=== PATIENT | male | born 1960 | race Two or more races ===

== ENCOUNTER 2020-10-20 22:06 | Emergency (ER) | payer SELFPAY ==
[~2020-10-20] VITALS: Ht 172.7 cm; Wt 90.7 kg
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
[2020-10-20 22:25] VITALS: BP 159/109
[2020-10-20] MEDS ORDERED: dexAMETHasone 10mg/ml Inj IV ONE (22:30)
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
[2020-10-20 22:52] LABS: BASOPHILS % (AUTO) 1.9 % (0.0-2.0); EOSINOPHILS % (AUTO) 11.7 % (0.0-3.0); HEMATOCRIT 37.4 % (42.0-52.0); HEMOGLOBIN 13.2 G/DL (14.2-18.0); LYMPHOCYTES % (AUTO) 36.5 % (20.0-45.0); MEAN CORPUSCULAR VOLUME 90 FL (80-99); MONOCYTES % (AUTO) 5.7 % (1.0-10.0); NEUTROPHILS % (AUTO) 44.3 % (45.0-75.0); PLATELET COUNT 192 K/UL (150-450); RED BLOOD COUNT 4.14 M/UL (4.70-6.10); RED CELL DISTRIBUTION WIDTH 14.6 % (11.6-14.8); WHITE BLOOD COUNT 7.8 K/UL (4.8-10.8)
[2020-10-20 22:54] LABS: APPEARANCE,URINE CLEAR; BILIRUBIN, URINE NEGATIVE (NEGATIVE); COLOR,URINE PALE YELLOW; GLUCOSE, URINE (UA) NEGATIVE (NEGATIVE); KETONES,URINE NEGATIVE (NEGATIVE); LEUKOCYTE ESTERASE ,URINE NEGATIVE (NEGATIVE); NITRITE,URINE NEGATIVE (NEGATIVE); PH,URINE 6 (4.5-8.0); PROTEIN,URINE NEGATIVE (NEGATIVE); UROBILINOGEN,URINE NORMAL MG/DL (0.0-1.0)
[2020-10-20 23:01] LABS: ANION GAP 8 mmol/L (5-15); BLOOD UREA NITROGEN 8 mg/dL (7-18); CALCIUM 8.5 MG/DL (8.5-10.1); CARBON DIOXIDE 28 MMOL/L (21-32); CHLORIDE 101 MMOL/L (98-107); POTASSIUM 3.4 MMOL/L (3.5-5.1); SODIUM 137 MMOL/L (136-145)
--- NOTE | 2020-10-20 23:10 | Diagnostic Imaging Report ---
CT head without contrast History: Altered mental status Technique: Axial noncontrast head CT with coronal, sagittal reformatted images. Technique more: CTDI is 53.4 mGy and DLP is 1045.5 mGy-cm. Technique more: One or more of the following dose reduction techniques were used: automated exposure control, adjustment of the mA and/or kV according to patient size, use of iterative reconstruction technique. Comparison: None Findings: Left lateral craniectomy with mesh replacement changes, underlying left temporal frontal encephalomalacia. Peters-white matter differentiation is otherwise seen to be normal. No acute intracranial hemorrhage mass-effect or edema. 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 Impression: 1. Left Hemisphere postsurgical changes and encephalomalacia. 2. No acute intracranial finding.
[2020-10-20 23:16] LABS: ALANINE AMINOTRANSFERASE 45 U/L (12-78); ALBUMIN 3.3 G/DL (3.4-5.0); ALBUMIN/GLOBULIN RATIO 0.9 (1.0-2.7); ALKALINE PHOSPHATASE 61 U/L (46-116); ASPARTATE AMINO TRANSFERASE 44 U/L (15-37); BILIRUBIN,TOTAL 0.5 MG/DL (0.2-1.0); CKMB 5.1 NG/ML (0.0-3.6); CREATINE KINASE 497 U/L (26-308)
--- NOTE | 2020-10-21 00:30 | NUR ---
ED Nurse Note: Patient got out of bed to use restroom. CAROLIND spoke with patient. No acute distress at this time.
[2020-10-21] MEDS ORDERED: cefTRIAXone 1 GM in NS 55 ML IVPB ONE (02:15)
[2020-10-21 02:26] VITALS: BP 146/97
--- NOTE | 2020-10-21 02:26 | NUR ---
ED Nurse Note: Patient is not compliant with keeping nasal cannula in place. He removed oxygen device himself prior to reassessment at this time. Patient is currently breathing normal and unlabored with 98% oxygen sat on room air. No signs of respiratory distress. He is in bed with eyes closed.
[2020-10-21 04:15] VITALS: BP 143/99
--- NOTE | 2020-10-21 04:15 | NUR ---
ED Nurse Note: Patient is now aaox4. He is able to answer questions. He remains breathing normal and unlabored with stable oxygen saturation on room air. Patient provided with sandwhich and juice; tolerated well. He agrees with plan to discharge.
[2020-10-21] MEDS ORDERED: ALBUTEROL SULF8.5 G1 INH (05:27)
[2020-10-21] MEDS ORDERED: ZITHROMAX250 MG ORAL (05:27)
[2020-10-21 06:00] VITALS: BP 138/85
--- NOTE | 2020-10-21 06:00 | NUR ---
ER DISCHARGE NOTE: Patient is cleared to be discharged per ERMD, pt is aox4, on room air, with stable vital signs. pt was given dc and prescription instructions, pt was able to verbalize understanding, pt id band and iv site removed without complications. pt is able to ambulate with steady gait. pt took all belongings.
--- NOTE | 2020-10-21 14:56 | Diagnostic Imaging Report ---
Indication: Shortness of breath Technique: One view of the chest Comparison: none Findings: Bilateral streaky and patchy and airspace opacities are demonstrated in a peribronchovascular distribution. There is suggestion of a small right pleural effusion. The heart size is upper limits normal. The aorta is ectatic and tortuous. The upper mediastinum is unremarkable Impression: Bilateral renal opacities, likely representing multifocal pneumonia.
== END 2020-10-21 06:00 | disposition home or self-care (01) ==
LOC: EDBD 22:06 → EMR 22:26
DX: R41.82 Altered mental status, unspecified (principal); F10.920 Alcohol use, unspecified with intoxication, uncomplicated; J18.9 Pneumonia, unspecified organism; F15.10 Other stimulant abuse, uncomplicated; I10 Essential (primary) hypertension; E11.9 Type 2 diabetes mellitus without complications
CPT/HCPCS: 36415; 70450; 71045; 80053; 80307; 81003; 82550; 82553; 83605; 84484; 85025; 85379; 86140; 87040; 93005; 96365; 96375; 99284; G0480; J0696; U0002